=== PATIENT | male | born 1950 | race Caucasian/White ===

== ENCOUNTER 2017-12-12 08:47 | Outpatient (CLI) | payer OTHER | END 2017-12-12 10:47 | disposition home or self-care (01) | LOC: ECT 08:47 | DX: F33.2 Major depressive disorder, recurrent severe without psychotic features (principal); F90.9 Attention-deficit hyperactivity disorder, unspecified type; F34.1 Dysthymic disorder; E16.2 Hypoglycemia, unspecified; Z88.8 Allergy status to other drugs, medicaments and biological substances ==